=== PATIENT | female | born 1990 | race Caucasian/White ===

== ENCOUNTER 2025-02-09 19:11 | Emergency (ER) | payer OTHER, MEDICAID ==
[~2025-02-09] VITALS: Ht 157.5 cm; Wt 90.0 kg
[2025-02-09 19:15] VITALS: O2SAT 99
[2025-02-09] MEDS ORDERED: ACETAMINOPHEN 325MG TABLET PO ONE (19:45)
[2025-02-09 20:28] LABS: BASOPHILS % 0.7 % (0.0-2.0); EOSINOPHILS % 1.7 % (0.0-5.0); HEMATOCRIT. 40.4 % (36.0-48.0); HEMOGLOBIN. 13.4 g/dL (12.0-16.0); LYMPHOCYTES % 20.5 % (20.0-50.0); MEAN CORPUSCULAR HEMOGLOBIN 29.6 pg (28.0-32.0); MEAN CORPUSCULAR HGB CONC 33.2 g/dL (31.0-37.0); MEAN CORPUSCULAR VOLUME 89.2 fL (81.0-99.0); MEAN PLATELET VOLUME 8.4 fl (7.4-10.4); MONOCYTES % 6.3 % (2.0-8.0); NEUTROPHILS % 70.8 % (40.0-76.0); PLATELET 305 x1000/uL (130-400); RED BLOOD CELL COUNT 4.53 mill/uL (4.2-5.4); RED CELL DISTRIBUTION WIDTH 13.8 % (11.6-14.6); WHITE BLOOD COUNT 12.3 x1000/uL (4.5-11.0)
[2025-02-09 20:41] LABS: CALCIUM 9.7 mg/dL (8.7-10.4); CARBON DIOXIDE 26 mEq/L (21-32); CHLORIDE 106 mEq/L (98-107); POTASSIUM 3.7 mEq/L (3.5-5.1); SODIUM 141 mEq/L (136-145)
[2025-02-09 20:45] LABS: CREATININE 0.7 mg/dL (0.6-1.0); GLUCOSE 97 mg/dL (70-105); UREA NITROGEN BLOOD 12 mg/dL (9-23)
[2025-02-09 20:46] LABS: TROPONIN I HIGH SENSITIVITY < 4 ng/L (3.0-34)
[2025-02-09 20:47] LABS: ALANINE AMINOTRANSFERASE 38 IU/L (10-49); ALBUMIN 4.4 g/dL (3.2-4.8); ASPARTATE AMINOTRANSFERASE 23 IU/L (<34); BILIRUBIN DIRECT 0.1 mg/dL (<=3.0); BILIRUBIN TOTAL 0.4 mg/dL (0.1-1.0); PROTEIN TOTAL 6.9 g/dL (6.0-8.3)
[2025-02-09 21:02] LABS: B-HCG QUANTITATIVE 8244 mIU/mL (<6)
[2025-02-09] MEDS ORDERED: HYDR-4001 MT (21:42)
[2025-02-09] MEDS: ACETAMINOPHEN 325MG TABLET PO NR (22:03)
[2025-02-09] MEDS: SODIUM CHLORIDE 0.9% 1,000 ML IV ONE (22:03)
[2025-02-10 00:15] VITALS: BP 113/79; PULSE 84; RESP 16; TEMP 36.9; O2SAT 98
== END 2025-02-10 00:27 | disposition home or self-care (01) ==
LOC: ER 19:11
DX: O03.9 Complete or unspecified spontaneous abortion without complication (principal); Z3A.09 9 weeks gestation of pregnancy
CPT/HCPCS: 99284; 96360; 76830; 76856; 80076; 80048; 84702; 83690; 85025; 86850; 86900; 86901; 84484; 36415; 93005; J7030